=== PATIENT | male | born 1945 | race Caucasian/White ===

== ENCOUNTER 2017-03-27 23:58 | Emergency (ER) | payer OTHER ==
[~2017-03-27] VITALS: Ht 190.5 cm; Wt 98.7 kg
[~2017-03-27 23:58] MED LIST: ADVAIR 250/501 DISK IH; ASPIRIN81 M2 PO; LOVASTATIN20 MG PO; MULTI VITAMIN1 EACH PO; NORCO 5/3251 TABLET PO
[2017-03-28 00:40] LABS: HEMATOCRIT 40.4 % (38.0-50.0); MCH 34.4 PG (29.0-34.0); MCHC 36.1 G/DL (30.0-36.0); MCV 95.3 FL (86-99); PLATELET COUNT 209 K/uL (156-360); RBC DIS.WIDTH-CV 12.5 % (11.8-14.6); RBC DIS.WIDTH-SD 43.3 % (39-53); RED BLOOD COUNT 4.24 M/uL (4.00-5.50); WHITE BLOOD COUNT 10.6 K/uL (4.1-10.2)
[2017-03-28 00:43] LABS: HEMOGLOBIN 14.6 G/DL (12.5-16.6)
[2017-03-28 00:54] LABS: CHLORIDE 106 mEq/L (99-109); POTASSIUM 3.4 mEq/L (3.7-5.4); SODIUM 138 mEq/L (136-147)
[2017-03-28 00:56] LABS: GLUCOSE 132 mg/dL (70-99)
[2017-03-28 01:00] LABS: CREATININE 1.1 mg/dL (0.6-1.3); GFR ESTIMATE (CALCULATED) > 59 mL/min/ (58.99-99999)
[2017-03-28 01:01] LABS: UREA NITROGEN (BUN) 25 mg/dL (9-23)
[2017-03-28] MEDS ORDERED: VENTOLIN HFA18 GM IH (01:59)
[2017-03-28] MEDS ORDERED: TESSALON PERLE100 MG PO (01:59)
[2017-03-28] MEDS ORDERED: PREDNISONE20 MG PO (01:59)
[2017-03-28 02:36] VITALS: BP 121/65
== END 2017-03-28 02:43 | disposition home or self-care (01) ==
LOC: EXP 23:58 → EME 23:58 → EXP 03-28 02:43
DX: J20.9 Acute bronchitis, unspecified (principal); J45.909 Unspecified asthma, uncomplicated; E78.5 Hyperlipidemia, unspecified; Z79.82 Long term (current) use of aspirin; Z88.7 Allergy status to serum and vaccine
CPT/HCPCS: 71046; 80048; 85027; 94640; J7512